=== PATIENT | female | born 2000 | race Caucasian/White ===

== ENCOUNTER 2024-09-12 13:19 | Emergency (ER) | payer BC ==
[~2024-09-12] VITALS: Ht 165.1 cm; Wt 87.5 kg
[~2024-09-12 13:19] MED LIST: FLUOXETINE HCL20 MG; ZOFRAN4 MG PO
[2024-09-12] MEDS ORDERED: OMEPRAZOLE20 MG PO (13:30)
[2024-09-12] MEDS ORDERED: SUCRALFATE1 GM PO (13:31)
[2024-09-12] MEDS ORDERED: ESCITALOPRAM OX20 MG PO (13:31)
[2024-09-12] MEDS ORDERED: ETONOGESTREL-E1 EACH VG (13:31)
[2024-09-12] MEDS ORDERED: LAMOTRIGINE200 MG PO (13:32)
[2024-09-12] MEDS ORDERED: ondansetron HCL 4 MG/2 ML VIAL IV PRN (13:45)
[2024-09-12] MEDS ORDERED: SODIUM CHLORIDE 0.9% 1,000 ML IV ONE (13:45)
[2024-09-12 13:50] LABS: BASOPHILS 0.5 % (0-2); EOSINOPHILS 4.1 % (0-6); HEMATOCRIT 41.2 % (35.0-50.0); HEMOGLOBIN 14.6 g/dL (12.0-18.0); LYMPHOCYTES 42.6 % (24-44); MCH 30.3 (27-36); MCHC 35.5 g/dl (30-36); MCV 85.2 fl (81-99); MONOCYTES 7.6 % (0-12); NEUTROPHILS 45.2 % (39-80); PLATELET COUNT 329 K/uL (140-440); RBC 4.83 M/ul (4.3-5.7); RDW 13.3 (10.5-15.0)
[2024-09-12 14:06] LABS: ALBUMIN/GLOBULIN RATIO 1.18 (1.1-2.4); ANION GAP 14.7 (7-21); BILIRUBIN, TOTAL 0.2 mg/dL (0.2-1.0); BUN/CREATININE RATIO 14.28 (6.0-28.6); CALCIUM 9.2 mg/dL (8.5-10.1); CREATININE, SERUM 0.84 mg/dL (0.55-1.02); POTASSIUM 3.7 mmol/L (3.5-5.1); PROTEIN, TOTAL 7.4 g/dL (6.4-8.2)
[2024-09-12 14:26] LABS: BILIRUBIN, URINE NEGATIVE (negative); BLOOD/HGB, URINE NEGATIVE (Negative); KETONE, URINE NEGATIVE (Negative); LEUK ESTERASE, URINE NEGATIVE (negative); NITRITE, URINE NEGATIVE (negative); PH, URINE 7.5 (5-7)
[2024-09-12] MEDS ORDERED: ONDANSETRON ODT8 MG PO (14:53)
[2024-09-12 14:55] VITALS: BP 138/76
--- NOTE | 2024-09-14 08:22 | EKG ---
[facility] [address] [facility] [address] Signed Normal sinus rhythm Nonspecific T wave abnormality Abnormal ECG No previous ECGs available Confirmed by Amanda Lindsey MD ([id number]) on 09/14/2024 8:21:52 AM Electronically Signed By: AMANDA LINDSEY MD 09/14/24821 PATIENT NAME: YO TERRELL Electrocardiogram DATE OF : [birth year] PHYSICIAN: AMANDA LINDSEY MD REPORT #: [id number] REPORT IS CONFIDENTIAL AND NOT TO BE RELEASED WITHOUT AUTHORIZATION
== END 2024-09-12 14:55 | disposition home or self-care (01) ==
LOC: ED 13:19
PROVIDERS: Emergency Medicine
DX: R10.13 Epigastric pain (principal); Z79.899 Other long term (current) drug therapy
CPT/HCPCS: 36415; 80053; 81003; 83690; 84703; 85025; 93005; 93010; 96374; 99284-25; J2405; J7030

== ENCOUNTER 2024-09-21 13:02 | Day surgery (SDC) | payer BC ==
[~2024-09-21] VITALS: Ht 165.1 cm; Wt 87.5 kg
[~2024-09-21 13:02] MED LIST changes: +CEFAZOLIN SODIUM 2 GM/20 ML SYR IV SCH; +ESCITALOPRAM OX20 MG PO; +ETONOGESTREL-E1 EACH VG; +HEParin SOD (PORCINE) 5,000 UNIT/ML SDV SUB-Q SCH; +IBLOOD GLUCOSE TEST STRIP 1 EA TEST VI PRN; +LACTATED RINGER'S 1,000 ML IV SCH; +LAMOTRIGINE200 MG PO; +LIDOCAINE HCL 1% 5 ML SDV INJ ONE; +OMEPRAZOLE20 MG PO; +ONDANSETRON ODT8 MG PO; +SEVOFLURANE 250 ML BTL INH ONE; +SUCRALFATE1 GM PO
[2024-09-21 13:22] VITALS: BP 116/75
[2024-09-21] MEDS ORDERED: IRON325 M1 PO (13:31)
[2024-09-21] MEDS ORDERED: VITAMIN D325 MC2 PO (13:31)
[2024-09-21] MEDS ORDERED: VITAMIN C 500500 M1 PO (13:32)
[2024-09-21] MEDS ORDERED: HYDROXYZINE HCL25 MG PO (13:33)
[2024-09-21] MEDS ORDERED: iopamidoL 30 ML VIAL ONE (13:48)
[2024-09-21] MEDS ORDERED: BUPIVACAINE HCL 0.25% 50 ML MDV ONE (13:48)
[2024-09-21] MEDS ORDERED: SODIUM CHLORIDE 0.9% 40 ML IV ONE (13:49)
[2024-09-21] MEDS ORDERED: SUGAMMADEX SODIUM 200 MG/2 ML ML ONE (15:05)
[2024-09-21] MEDS ORDERED: ROCURONIUM BROMIDE 50 MG/5 ML SYR ONE (15:05)
[2024-09-21] MEDS ORDERED: fentaNYL citrate 100 MCG/2 ML VIAL ONE (15:05)
[2024-09-21] MEDS ORDERED: SUCCINYLCHOLINE IN 0.9% NACL 200 MG/10 ML SYRINGE ONE (15:05)
[2024-09-21] MEDS ORDERED: ondansetron HCL 4 MG/2 ML VIAL ONE (15:05)
[2024-09-21] MEDS ORDERED: KETOROLAC TROMETHAMINE 30 MG/ML VIAL ONE (15:05)
[2024-09-21] MEDS ORDERED: DEXAMETHASONE SOD PHOS 4 MG/ML VIAL ONE (15:05)
[2024-09-21] MEDS ORDERED: propofoL 200 MG/20 ML VIAL ONE (15:05)
[2024-09-21] MEDS ORDERED: LIDOCAINE HCL 2% 5 ML SDV ONE (15:05)
[2024-09-21] MEDS ORDERED: ACETAMINOPHEN 1,000 MG/100 ML VIAL ONE (15:05)
[2024-09-21] MEDS ORDERED: MIDAZOLAM HCL 2 MG/2 ML VIAL ONE (15:06)
[2024-09-21] MEDS ORDERED: LIDOCAINE HCL 2% 20 MG/ML VIAL INJ ONE (15:06)
[2024-09-21] MEDS ORDERED: KETAMINE in NS 50 MG/5 ML SYR ONE (15:12)
[2024-09-21] MEDS ORDERED: dexmedeTOMIDine HCl 200 MCG/2 ML VIAL ONE (15:12)
[2024-09-21] MEDS ORDERED: SCOPOLAMINE 1 MG/3 DAYS PATCH 1 EACH TDSY ONE (15:30)
[2024-09-21] MEDS ORDERED: IBLOOD GLUCOSE TEST STRIP 1 EA TEST VI PRN (16:00)
[2024-09-21] MEDS ORDERED: HYDROmorphone HCL 1 MG/ML SYR IV PRN (16:00)
[2024-09-21] MEDS ORDERED: NALOXONE HCL 0.4 MG SYR IV PRN ×2 (16:00→17:15)
[2024-09-21] MEDS ORDERED: ondansetron HCL 4 MG/2 ML VIAL IV PRN ×2 (16:00→17:15)
[2024-09-21] MEDS ORDERED: fentaNYL citrate 50 MCG/ML SDV IV PRN (16:00)
[2024-09-21] MEDS ORDERED: PROCHLORPERAZINE EDISYLATE 10 MG/2 ML VIAL IV PRN (16:00)
[2024-09-21] MEDS ORDERED: droPERidol 5 MG/2 ML VIAL IV PRN (16:00)
[2024-09-21] MEDS ORDERED: MORPHINE SULFATE 10 MG/ML VIAL ONE (16:11)
[2024-09-21] MEDS ORDERED: LACTATED RINGER'S 1,000 ML IV ONE (16:28)
[2024-09-21] MEDS ORDERED: ONDANSETRON ODT8 MG PO ×2 (17:08→17:09)
[2024-09-21] MEDS ORDERED: MOTRIN IB200 MG PO (17:10)
[2024-09-21] MEDS ORDERED: TYLENOL EXTRA500 MG PO (17:10)
[2024-09-21] MEDS ORDERED: OXYCODONE HCL5 MG PO (17:10)
[2024-09-21] MEDS ORDERED: IBUPROFEN 600 MG TAB PO PRN (17:15)
[2024-09-21] MEDS ORDERED: ACETAMINOPHEN 500 MG TAB PO PRN (17:15)
[2024-09-21] MEDS ORDERED: OXYCODONE/APAP 7.5/325 TAB PO PRN (17:15)
[2024-09-21] MEDS ORDERED: LACTATED RINGER'S 1,000 ML IV SCH (17:15)
[2024-09-21 18:06] VITALS: BP 121/60
[2024-09-21 18:43] VITALS: BP 125/67
[2024-09-21 20:18] VITALS: BP 104/72
[2024-09-21 21:53] VITALS: BP 120/72
[2024-09-21 22:40] VITALS: BP 119/71
--- NOTE | 2024-09-28 09:15 | OR ---
[facility] [address] [place], [place] [address] Signed DATE OF OPERATION: 09/21/2024 SURGEON: Maurice Parsons MD PREOPERATIVE DIAGNOSIS: Chronic cholecystitis with biliary sludge. POSTOPERATIVE DIAGNOSIS: Chronic calculous cholecystitis. PROCEDURE: Laparoscopic cholecystectomy with intraoperative cholangiogram. ANESTHESIA: General endotracheal; Sebastián Leon CRNA and 10 mL of 0.25% Marcaine with epinephrine. INDICATIONS: This a 24-year-old white woman is a patient of BENJIE Guo. The patient has had episodes of right upper abdominal pain following meals. She generally lives in [place], though she is from [place] and her mother, who is a nursing data recovery planner, works at [employer]. She presented to the emergency room on September 12, 2024 with complaints of epigastric pain and right upper abdominal pain radiating to the subscapular area on the right. She was evaluated by Dr. Zaragoza, emergency room physician who saw no EKG findings. Her lab studies noting no "emergency" and therefore, discharged the patient anticipating outpatient evaluation. I saw her recently and her symptoms were quite consistent with cholecystitis chronic and relapsing. She does have family history of cholecystectomy in her mother and other family members. She underwent a gallbladder ultrasound, which showed "sludge," but no well-formed stones. Given her classic symptoms of biliary colic and findings on ultrasound, I have recommended cholecystectomy preferred by laparoscopic approach. The risk of bleeding, infection, bile duct injury, need for open procedure and most importantly failure to cure her symptoms were all reviewed with her and her family. They understand and wished to proceed. FINDINGS: The gallbladder was chronically inflamed. The liver was normal. The gallbladder once excised and opened showed innumerable tiny small gallstones and chronic inflammatory change of the mucosa. Cholangiogram was normal. DESCRIPTION OF PROCEDURE: Electronically Signed By: MAURICE PARSONS MD 09/28/24 0915 PATIENT NAME: YO TERRELL OPERATIVE REPORT DATE OF : [birth year] REPORT #: [id number] PHYSICIAN: MAURICE PARSONS MD PCP: XUAN SHARP PAC REPORT IS CONFIDENTIAL AND NOT TO BE RELEASED WITHOUT AUTHORIZATION [facility] [address] [place], [place] [address] Signed The patient was brought to the operating room, given a general endotracheal anesthetic. Preoperative antibiotic Ancef was given and sequential compression device stockings were used. The abdomen was prepared with a chlorhexidine solution and draped sterilely. An infraumbilical incision was made and using an open Denisha cannula technique, the abdomen was entered and pneumoperitoneum achieved to a level of 14 mmHg of carbon dioxide gas. Intra-abdominal inspection showed no sign of ascites or carcinomatosis. The liver appeared normal. The small amount of gallbladder was visualized and looked chronically inflamed, but not acutely inflamed. Three additional trocars were placed in usual configuration in the subxiphoid, right midclavicular, and right anterior axillary line. The gallbladder was elevated cephalad and retracted laterally. Using blunt and electrocautery dissection, the triangle of Calot was dissected free ultimately identifying well the cystic duct and the cystic artery. There was a small, but enlarged pericholecystic lymph node noted as well. The cystic artery was doubly clipped and a clip applied across gallbladder cystic duct junction. A transverse choledochotomy was made in the cystic duct. Egress of clear bile was noted. Using an Yun type cholangiocatheter intraoperative cholangiography was undertaken showing free flow of contrast in the duodenum. The retrograde filling was not forthcoming and therefore, 4 mg of morphine was administered, which allowed for retrograde fill into the more proximal biliary tree, which was also normal. The biliary anatomy was conventional. The catheter was removed and the cystic duct was triply clipped and divided as was the cystic artery. The gallbladder was dissected free in a retrograde fashion using electrocautery. A small rent in the gallbladder allowed for egress of bile, but no stones. The gallbladder was ultimately placed in an endobag and extracted through the infraumbilical port site, opened on the back table and found to have innumerable very tiny gallstones that were not calcified. The mucosa was chronically inflamed. Irrigation was undertaken in the subhepatic space. There was no sign of bile leak, bleeding or other problems. The trocars removed under direct visualization showing no sign of bleeding. The infraumbilical fascial and incision were reapproximated with interrupted 0 PDS suture without triclosan antibiotic. The skin as closed using interrupted 3-0 triclosan-free Vicryl as well. 10 mL of 0.25% Marcaine with epinephrine was injected into the trocar sites before closure. Steri-Strips were applied. The patient was ultimately extubated and transferred to the recovery room in good condition having suffered no complications. Sponge, needle and instrument counts reported as correct x3. MD IGNACIO Fuller/LIDAL Electronically Signed By: MAURICE PARSONS MD 09/28/24 0915 PATIENT NAME: YO TERRELL OPERATIVE REPORT DATE OF : [birth year] REPORT #: [id number] PHYSICIAN: MAURICE PARSONS MD PCP: XUAN SHARP PAC REPORT IS CONFIDENTIAL AND NOT TO BE RELEASED WITHOUT AUTHORIZATION [address] [place] [address] Signed /[id number] cc: Xuan Sharp PA-C [facility] Copies: XUAN SHARP PAC ~ Electronically Signed By: MAURICE PARSONS MD 09/28/24 0915 PATIENT NAME: YO TERRELL OPERATIVE REPORT DATE OF : [birth year] REPORT #: [id number] PHYSICIAN: MAURICE PARSONS MD PCP: XUAN SHARP PAC REPORT IS CONFIDENTIAL AND NOT TO BE RELEASED WITHOUT AUTHORIZATION
== END 2024-09-21 22:42 | disposition home or self-care (01) ==
LOC: DS 13:02 → MS 17:49 → DS 22:42
PROVIDERS: ATTEND Surgery
PROC: 0FT44ZZ Resection of Gallbladder, Percutaneous Endoscopic Approach (ICD-10-PCS; principal; 2024-09-21 15:00)
DX: K80.10 Calculus of gallbladder with chronic cholecystitis without obstruction (principal)
CPT/HCPCS: 00790; 51798; 74300; 96360; 96361; A9270; J0131; J0330; J0690; J1100; J1644; J1790; J1885; J2003; J2250; J2270; J2405; J2704; J3010; J3490; J7121; Q9967